=== PATIENT | female | born 1945 | race Caucasian/White ===

== ENCOUNTER 2023-11-21 13:57 | Outpatient (OUT) | payer MEDICARE, SELFPAY ==
--- NOTE | 2023-11-21 14:06 | MM_ITS ---
Patient Name: JOSE ANTONIO HATHAWAY MR#: [id number] : 1945 Exam Date: 11/21/2023 Ordering Doctor: Non-Staff Physician RADIOLOGY REPORT PROCEDURE: MM TOMOSYNTHESIS SCREENING BI COMPARISON: MG MAMM SCREEN JONO W CAD, 08/02/2016. MG MAMM SCREEN JONO W CAD, 02/06/2019. INDICATIONS: Screening Calculator Name NCI Breast Cancer Risk Assessment Tool 5 Year Breast Cancer Risk Not Reported. Lifetime Breast Cancer Risk Not Reported. Personal Breast Cancer No Personal Ovarian Cancer No Treatments None Family Cancers None LOCATION: [facility] BREAST COMPOSITION: There are scattered areas of fibroglandular density. FINDINGS: DIAGNOSTIC CATEGORY 1--NEGATIVE. NO CHANGE FROM COMPARISON ASSESSMENT. Scattered benign-appearing lymph nodes are present. RIGHT BREAST: No significant suspicious finding. LEFT BREAST: No significant suspicious finding. RECOMMENDATIONS: ROUTINE MAMMOGRAM AND CLINICAL EVALUATION IN 12 MONTHS. PLEASE NOTE: A NORMAL MAMMOGRAM DOES NOT EXCLUDE THE POSSIBILITY OF BREAST CANCER. A CLINICALLY SUSPICIOUS PALPABLE LUMP SHOULD BE BIOPSIED. Dictated by: Alonso Etienne MD on 11/22/2023 at 07:35 Approved by: Alonso Etienne MD on 11/22/2023 at 07:39
== END 2023-11-21 13:58 | disposition home or self-care (01) ==
DX: Z12.31 Encounter for screening mammogram for malignant neoplasm of breast (principal)
CPT/HCPCS: 77063; 77067

== ENCOUNTER 2024-12-11 13:09 | Outpatient (OUT) | payer MEDICARE, SELFPAY ==
--- OUTSIDE RECORDS SUMMARY | 2024-12-11 13:15 | XMS_ITS | Encounter Summary ---
Author Organization [employer] tem Address [id number] [address] 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 Role Phone Services, [facility] Primary Care Provider Encounter Details DateTypeDepartmentCare Team (Latest Contact Info)Zsrosromeum25/23/2025Orders Only Lillie Vines [facility] - Medical Oncology [address] [place] [phone] Noah Venegas, RADHA Encounter for screening mammogram for malignant neoplasm of breast (Primary Dx); Other acute pulmonary embolism without acute cor pulmonale (CMS-HCC); Acute pulmonary embolism, unspecified pulmonary embolism type, unspecified whether acute cor pulmonale present (CMS-HCC); Chronic deep vein thrombosis (DVT) of calf muscle vein of left lower extremity (CMS-HCC) Social History Tobacco UseTypesPacks/DayYears UsedDateSmoking Tobacco: NeverSmokeless Tobacco: NeverAlcohol UseStandard Drinks/WeekCommentsNever0 (1 standard drink = 0.6 oz pure alcohol)AUDIT-CAnswerDate RecordedFrequency of Alcohol ConsumptionNever 01/08/2019Average Number of DrinksNot on file01/08/2019Frequency of Binge DrinkingNot on file01/08/2019Housing InstabilityAnswerDate RecordedAre you worried or concerned that in the next two months you may not have stable housing that you own, rent or stay in as a part of a household?No3Childcare AnswerDate CfbaahnbVzhupgehdPxlblrb94/12/2019EmploymentAnswerDate Recorded EcxvhvdxcaOfgpgup05/12/2019Hunger ScreeningAnswerDate RecordedWithin the past 12 months we worried whether our food would run out before we got money to buy more.Never True02/01/2024Within the past 12 months the food we bought just didn't last and we didn't have money to get more.Never True4Purpose - LifeAnswerDate RecordedPurpose and direction in kkvqCsdonzg83/11/2021 CommentsNoSex and Gender InformationValueDate RecordedSex Assigned at Iavzjn6509/12/2024 8:13 AM EDTLegal FkeTbpfyr99/06/2015 11:21 AM EDTGender GufstwoyUlglyw02/25/2025 8:13 AM EDTSexual HowynancnjsSsnppzjs69/25/2025 8:13 AM EDTdocumented as of this encounter Plan of Treatment DateTypeDepartmentCare Team (Latest Contact Info)Rjvwnxgxuia99/01/2026 9:00 AM EDTOffice Visit Lillie Vines [facility] - Medical Oncology [address] [place] [phone] Balaji Barrera MD [address] [place] [address] NameTypePriorityAssociated DiagnosesOrder ScheduleMammography screening bilateral with CADImagingRoutine Encounter for screening mammogram for malignant neoplasm of breast Other acute pulmonary embolism without acute cor pulmonale (CMS-HCC) Acute pulmonary embolism, unspecified pulmonary embolism type, unspecified whether acute cor pulmonale present (CMS-HCC) Chronic deep vein thrombosis (DVT) of calf muscle vein of left lower extremity (CMS-HCC) Expected: 12/11/2024 (Approximate), Expires: 12/11/2025documented as of this encounter Goals GoalPatient Goal TypeAssociated ProblemsRecent ProgressPatient-Stated?Author Home Chayo De L aRosa LSW Note: Evaluation of progress towards goal: Safe dc transition home with family support documented as of this encounter Visit Diagnoses Diagnosis Encounter for screening mammogram for malignant neoplasm of breast- Primary Other acute pulmonary embolism without acute cor pulmonale (CMS-HCC) Acute pulmonary embolism, unspecified pulmonary embolism type, unspecified whether acute cor pulmonale present (CMS-HCC) Chronic deep vein thrombosis (DVT) of calf muscle vein of left lower extremity (CMS-HCC) documented in this encounter Care Teams Team MemberRelationshipSpecialtyStart DateEnd Date Services, [facility] [address] [place], [place] PCP - GeneralFamily Neeldkpr24/26/19documented as of this encounter
--- OUTSIDE RECORDS SUMMARY | 2024-12-11 13:15 | XMS_ITS | Clinical Summary ---
Author Organization [employer] [facility] tem Address [id number] [address] 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 Name Role Phone Services, [facility] Primary Care Provider Allergies No known active allergies Medications MedicationSigDispense QuantityRefillsLast FilledStart DateEnd DateStatus levothyroxine (SYNTHROID, LEVOTHROID) 100 MCG tablet Take 25 mcg by mouth in the morning.Active B complex-vitamin C-folic acid (NEPHROCAPS) 1 mg capsule Take 1 capsule by mouth in the morning.Active omega-3 acid ethyl esters (LOVAZA) 1 gram capsule Take 1 capsule (1 g total) by mouth in the morning.Active gluc/msm/C/boron/manganes/prim (JOINT SUPPORT COMPLEX ORAL) Take by mouth.Active NON FORMULARY Take 1 each by mouth in the morning. Med Name: VitaCal -Mag D .Active apixaban (ELIQUIS) 2.5 mg tablet Indications:Factor 5 Leiden mutation, heterozygous,Chronic deep vein thrombosis (DVT) of calf muscle vein of left lower extremity (CMS-HCC),Pulmonary embolism, unspecified chronicity, unspecified pulmonary embolism type, unspecified whether acute cor pulmonale present (CMS-HCC)Take 1 tablet (2.5 mg total) by mouth in the morning and 1 tablet (2.5 mg total) before bedtime. 60 tablet 5Active NON FORMULARY Take 1 each by mouth in the morning. Med Name: Cholestria .11/20/2024 Discontinued NON FORMULARY Take 1 each by mouth in the morning. Med Name: Elderberry plus zinc and Vit-C . 10/02/2025Discontinued omeprazole (PriLOSEC) 20 mg capsule Take 1 capsule (20 mg total) by mouth every morning before breakfast.07/18/2022 11/20/2024Discontinued cyclobenzaprine (FLEXERIL) 10 mg tablet Indications:Sciatica of left sideTake 1 tablet (10 mg total) by mouth 2 (two) times a day as needed for muscle spasms. 10 tablet Discontinued Active Problems ProblemNoted DateDiagnosed DateChronic deep vein thrombosis (DVT) of calf muscle vein of left lower vvrlvekrk73/15/2023Factor 5 Leiden mutation, heterozygous 02/02/20239024Hhqmblvtllcxbn39/29/2023ulmonary rrkhwj9307/17/2022cute pulmonary embolism without acute cor yxaovfnry75/28/2023 Encounters DateTypeDepartmentCare TozrWldiwsrdkdm42/23/2025Orders Only [facility] - Medical Oncology [address] [place] [phone] Noah Venegas, RADHA Encounter for screening mammogram for malignant neoplasm of breast (Primary Dx); Other acute pulmonary embolism without acute cor pulmonale (CMS-HCC); Acute pulmonary embolism, unspecified pulmonary embolism type, unspecified whether acute cor pulmonale present (CMS-HCC); Chronic deep vein thrombosis (DVT) of calf muscle vein of left lower extremity (CMS-HCC)11/20/2024 8:45 AM EDTOffice Visit [facility] - Medical Oncology [address] [place] [phone] Balaji Barrera MD Acute pulmonary embolism, unspecified pulmonary embolism type, unspecified whether acute cor pulmonale present (CMS-HCC) (Primary Dx); Factor 5 Leiden mutation, heterozygous; Chronic deep vein thrombosis (DVT) of calf muscle vein of left lower extremity (CMS-HCC); Other acute pulmonary embolism without acute cor pulmonale (CMS-HCC)11/20/2024 Orders Only [facility] - Medical Oncology [address] [place] [phone] Estephanie Escoto RN Other acute pulmonary embolism without acute cor pulmonale ([facility]-HCC) (Primary Dx); History of DVT (deep vein thrombosis); Factor 5 Leiden mutation, rpbcjhuofwjv80/01/0293Hjtcmr60/15/2025Orders Only Lillie Vines [facility] - Medical Oncology [address] [place] [phone] Balaji Barrera MD 10/08/2024Orders Only Lillie Vines [facility] - Medical Oncology [address] [place] [phone] Estephanie Escoto RN Other acute pulmonary embolism without acute cor pulmonale ([facility]-HCC) (Primary Dx); History of DVT (deep vein thrombosis); Factor 5 Leiden mutation, heterozygous; Monitoring for anticoagulant use; History of pulmonary embolus (PE); Acute pulmonary embolism, unspecified pulmonary embolism type, unspecified whether acute cor pulmonale present ([facility]-HCC); Chronic deep vein thrombosis (DVT) of calf muscle vein of left lower extremity ([facility]-HCC)10/08/20242353Nxjlmy32/11/2025Travelfrom Last 3 Months Family History Medical HistoryRelationNameCommentsDiabetesBrotherHeart diseaseFatherHeart diseaseMotherBreast cancerSisterDiabetesSisterRelationNameStatusCommentsBrother FatherDeceasedMotherDeceasedSister Social History Tobacco UseTypesPacks/DayYears UsedDateSmoking Tobacco: NeverSmokeless [...] as a part of a household?No3Childcare AnswerDate KxqdcbudMjtkdwbosJggjqyd73/12/2019EmploymentAnswerDate Recorded LvhnawxicnFmfuklo06/12/2019Hunger ScreeningAnswerDate RecordedWithin the past 12 months we worried whether our food would run out before we got money to buy more.Never True02/01/2024Within the past 12 months the food we bought just didn't last and we didn't have money to get more.Never True4Purpose - LifeAnswerDate RecordedPurpose and direction in omkgPiaxbge81/11/2021 CommentsNoSex and Gender InformationValueDate RecordedSex Assigned at Pjzgva4309/12/2024 8:13 AM EDTLegal FupDweoku34/06/2015 11:21 AM EDTGender OskfasbnQphxni02/25/2025 8:13 AM EDTSexual MsjmdxgfslfThbmdouj13/25/2025 8:13 AM EDT Last Filed Vital Signs Vital SignReadingTime TakenCommentsBlood Gmvdxjit986/7311/20/2024 8:43 AM EDT Chsjs699511/20/2024 8:43 AM KICQgovdyqpskh96.8 ??C (98.2 ??F)11/20/2024 8:43 AM EDTRespiratory Rppc7233 8:43 AM EDTOxygen Qbgyzklbkr40%11/20/2024 8:43 AM EDTInhaled Oxygen Concentration--Eudwja44.8 kg (202 lb 6.4 oz)11/20/2024 8:43 AM KOZLuthbo916.6 cm (5' 4.02 )11/20/2024 8:43 AM EDTBody Mass Index34.72 11/20/2024 8:43 AM EDT Plan of Treatment DateTypeDepartmentCare Team (Latest Contact Info)Nrqvytnmyll00/01/2026 9:00 AM EDTOffice Visit Lillie Vines [facility] - Medical Oncology [facility] [place] [phone] Balaji Barrera MD [address] [place] [address] Health MaintenanceDue DateLast DoneCommentsDepression Zwunwmasn13/24/1960 DTaP,Tdap and Td Vaccines (1 - Tdap)1966Zoster (Shingles) Vaccine (1 of 2) 1997Fall Risk Xfwsuyurt45/24/2013Influenza Atyizne1110/20/2024Tobacco Kobiwyjcr26 Goals GoalPatient Goal TypeAssociated ProblemsRecent ProgressPatient-Stated?Author Home Chayo De La Rosa LSW Note: Evaluation of progress towards goal: Safe dc transition home with family support Medical Devices ImplantedTypeAreaManufacturerDevice [facility] Expiration DateModel / Serial / LotLens Iol Ultrasert 20.5d - [id number] - [id number] Implanted:Qty: 1 on 01/14/2019 by Megan Del Cid MD at [facility]: [employer]04/[id number] 20.5 / [id number] / NALens Iol Ultrasert 18.0d - [id number] - [id number] Implanted:Qty: 1 on 03/29/2021 by Megan Del Cid MD at [facility]: [employer]/[id number] 18.0 / [id number] / NA Procedures Procedure NamePriorityDate/TimeAssociated DiagnosisCommentsCOMPREHENSIVE METABOLIC ZDDONZtyumrr18/01/2025 9:25 AM EDT Other acute pulmonary embolism without acute cor pulmonale (CMS-HCC) History of DVT (deep vein thrombosis) Factor 5 Leiden mutation, heterozygous Monitoring for anticoagulant use History of pulmonary embolus (PE) Acute pulmonary embolism, unspecified pulmonary embolism type, unspecified whether acute cor pulmonale present (CMS-HCC) Chronic deep vein thrombosis (DVT) of calf muscle vein of left lower extremity (CMS-HCC) CBC WITH AUTO VBXCKOODMGFUZwecytz89/01/2025 9:25 AM EDT Other acute pulmonary embolism without acute cor pulmonale (CMS-HCC) History of DVT (deep vein thrombosis) Factor 5 Leiden mutation, heterozygous Monitoring for anticoagulant use History of pulmonary embolus (PE) Acute pulmonary embolism, unspecified pulmonary embolism type, unspecified whether acute cor pulmonale present (CMS-HCC) Chronic deep vein thrombosis (DVT) of calf muscle vein of left lower extremity ([facility]-HCC) from Last 3 Months Results * CBC auto differential (11/19/2024 9:25 AM EDT)ComponentValueRef RangeTest MethodAnalysis TimePerformed AtPathologist SignatureWBC7.04 - 11 x10E9/L 11/19/2024 2:[address] [facility]ORYRBC Count4.613.8 - 5.2 X10E12/L1 2:[address] [facility] Igwgdpngff78.211.7 - 15.5 g/dL11/19/2024 2:[address] [facility] KONYOUETAKGwzfizycqb47.535 - 47 %11/19/2024 2:[address] [facility] YBNZJZNIXCOKR9679 - 100 fL11/19/2024 2:[address] [facility] BZWWNGPVVZOTJ15.927 - 34 pg11/19/2024 2:[address] [facility] CHDJASZJLFFEBG68.432 - 36 g/dL11/19/2024 2:[address] [facility] YMKEZTYYHHDFP46.211.5 - 15 %11/19/2024 2:[address] LABORATORYPlatelet Qhnlo539410 - 450 X10E9/L1 2:11 PM EDT [facility] ENEONCYKHSWGO62.87 - 12 fL11/19/2024 2:11 PM EDT [facility] LABORATORYNeutrophils %47.9%11/19/2024 2:11 PM EDT [facility] LABORATORYLymphocytes %41.8%11/19/2024 2:11 [facility] LAB[facility]ATORYMonocytes %7.9%11/19/2024 2:[address] [facility]ORYEosinophils %1.9%11/19/2024 2:[address] [facility] LABORATORYBasophils %0.5%11/19/2024 2:[address] [facility] LABORATORYNeutrophils Absolute (A)3.41.5 - 6.6 10*3/uL 11/19/2024 2:[address] [facility]ORYLymphocytes Absolute 2.91.0 - 3.5 10*3/uL11/19/2024 2:[address] [facility] Monocytes Absolute0.60.0 - 0.9 10*3/uL11/19/2024 2:[address] [facility]ORYEosinophils Absolute0.10.0 - 0.4 10*3/uL11/19/2024 2:[address] [facility]OR[facility]ORYBasophils Absolute0.00.0 - 0.2 10*3/uL 11/19/2024 2:[address] [facility] LABORATORYDifferential Type AUTOMATED VAJBNOJBPREM84/01/2025 2:[address] [facility] LABORATORYSpecimen (Source)Anatomical Location / LateralityCollection Method / VolumeCollection TimeReceived TimeBloodVenous blood / UnknownVenipuncture / Ywebvbg1511/19/2024 9:25 AM EDT1 9:25 AM EDT Narrative Authorizing ProviderResult TypeResult StatusChang Travon Barrera [facility] BLOOD ORDERABLES Final ResultPerforming OrganizationAddressCity/State/ZIP CodePhone Number [facility] [address] [place] [address], * (ABNORMAL) Comprehensive metabolic panel (11/19/2024 9:25 AM EDT)Component ValueRef RangeTest MethodAnalysis TimePerformed AtPathologist SignatureSODIUM 062402 - 146 mmol/L1 3:[address] [facility] POTASSIUM3.93.5 - 5.0 mmol/L1 3:[address] [facility] EITKORLBBSNDGDFFTM17237 - 109 mmol/L1 3:[address] [facility] LABORATORYCARBON QVZLDOM0982 - 32 mmol/L1 3:[address] [facility] LABORATORYANION GAP95 - 15 mmol/L1 3:45 PM EDT [facility] LABORATORYBLOOD UREA FFFNHOED725 - 27 mg/dL11/19/2024 3:[address] LABORATORYCREATININE0.740.40 - 1.00 mg/dL 11/19/2024 3:[address] LABORATORYComment:METHOD TRACEABLE TO IDSD IHEBTGKOEFXDFAL105(H)65 - 99 mg/dL11/19/2024 3:45 PM EDT [facility] LABORATORYCALCIUM9.48.5 - 10.5 mg/dL11/19/2024 3:[address] [facility] LABORATORYTOTAL PROTEIN7.36.0 - 8.0 g/dL 11/19/2024 3:[address] [facility] LABORATORYALBUMIN4.33.2 - 5.3 g/dL11/19/2024 3:[address] [facility] LABORATORYALKALINE PNQTZRHAPGF3133 - 130 U/L1 3:[address] [facility] HNGAJMPDQNZNG90<=41 U/L1 3:[address] [facility] PHKPOPJVSNROB45(H)<=31 U/L1 3:[address] [facility] LABORATORYBILIRUBIN,TOTAL1.20.3 - 1.2 mg/dL11/19/2024 3:[address] [facility] LABOR[facility]ORYEGFR Non-Race Ijjowfxcf35>=60 ml/min/1.73sq.m 11/19/2024 3:[address] [facility] LABORATORYComment: Reported eGFR is based on the CKD-EPI 2020 equation that does not use a race coefficient. Specimen (Source)Anatomical Location / LateralityCollection Method / Volume Collection TimeReceived TimeBloodVenous blood / UnknownVenipuncture / Unknown 11/19/2024 9:25 AM EDT1 9:25 AM EDT Narrative Authorizing ProviderResult TypeResult StatusChamagdalene ABURTO BLOOD ORDERABLES Final ResultPerforming OrganizationAddressCity/State/ZIP CodePhone Number [facility] [address] [place] [address], [place] [phone] from Last 3 Months Insurance Advance Directives * Full Code (Latest Code Status on File) Date ActivatedDate InactivatedComments07/16/2022 12:31 PM07/18/2022 3:25 PM Care Teams Team MemberRelationshipSpecialtyStart DateEnd Date Services, [facility] [address], [place] PCP - GeneralFamily Qqurexiz29/26/19
--- NOTE | 2024-12-11 13:22 | MM_ITS ---
Patient Name: JOS EANTONIO HATHAWAY MR#: [id number] : 1945 Exam Date: 12/11/2024 Ordering Doctor: DR. BOUCHRA STUBBS M.D. RADIOLOGY REPORT PROCEDURE: MM TOMOSYNTHESIS SCREENING BI COMPARISON: MM TOMOSYNTHESIS SCREENING BI, 11/21/2023. MG MAMM SCREEN JONO W CAD, 02/06/2019. MG MAMM SCREEN JONO W CAD, 08/02/2016. INDICATIONS: SCREENING Calculator Name NCI Breast Cancer Risk Assessment Tool 5 Year Breast Cancer Risk Not Reported. Lifetime Breast Cancer Risk Not Reported. Personal Breast Cancer No Personal Ovarian Cancer No Treatments None Family Cancers None LOCATION: [facility] BREAST COMPOSITION: There are scattered areas of fibroglandular density. FINDINGS: RIGHT BREAST: No significant suspicious finding. LEFT BREAST: No significant suspicious finding. DIAGNOSTIC CATEGORY 1--NEGATIVE. RECOMMENDATIONS: ROUTINE MAMMOGRAM AND CLINICAL EVALUATION IN 12 MONTHS. Dictated by: Syd Smart DO on 12/11/2024 at 15:10 Approved by: Syd Smart DO on 12/11/2024 at 15:11
--- OUTSIDE RECORDS SUMMARY | 2024-12-11 13:32 | XMS_ITS | CCD ---
Author Organization [facility] Care Team Providers Care Attendant Sales Name Role Phone Services, [facility] Primary Care Provider SERVICES, [facility] Unava ilCOLEMAN Alvarez Attending Unavailable RIVER JAUREGUI Referring Unavailable SERVICES, [facility] Anabella ilRIVER Dominique Referring Unavailable SERVICES, [facility] Unava ilBALAJI Contreras Referring Unavailable SERVICES, [facility] Unava ilBALAJI Contreras Attending Unavailable BALAJI STUBBS Referring Unavailable SERVICES, 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 60 tablet 11 08/18/2024 ActiveB complex- vitamin C-folic acid (NEPHROCAPS) 1 mg capsule (9 sources)take 1 capsule by mouth in the morningB complex-vitamin C-folic acid (NEPHROCAPS) 1 mg capsule Take 1 capsule by mouth in the morning. Activetake 1 capsule by mouth in the morningB complex-vitamin C-folic acid (NEPHROCAPS) 1 mg capsule Take 1 capsule by mouth in the morning. 0 Activecyclobenzaprine hydrochloride 10 mg oral tablet (3 sources)Muscle RelaxantStart: 02-01-2024 End: 11-15-2046cvnv 1 tablet by mouth twice daily as needed for muscle spasms cyclobenzaprine (FLEXERIL) 10 mg tablet Indications: Sciatica of left side Take 1 tablet (10 mg total) by mouth 2 (two) times a day as needed for muscle spasms. 10 tablet 02/01/2024 11/20/2024 Discontinuedgluc/msm/C/boron/manganes/prim (JOINT SUPPORT COMPLEX ORAL) (9 sources)gluc/msm/C/boron/manganes/prim (JOINT SUPPORT COMPLEX ORAL) Take by mouth. Activegluc/msm/C/boron/manganes/prim (JOINT SUPPORT COMPLEX ORAL) Take by mouth. 0 Activelevothyroxine sodium 0.1 mg oral tablet (9 sources)l-Thyroxinelevothyroxine (SYNTHROID, LEVOTHROID) 100 MCG tablet Take 25 mcg by mouth in the morning. ActiveNON FORMULARY (20 sources) End: 44-81-9145agrv 1 dose by mouth in the morningNON FORMULARY Take 1 each by mouth in the morning. Med Name: Cholestria . 11/20/2024 Discontinued End: 85-70-5906woji 1 dose by mouth in the morningNON FORMULARY Take 1 each by mouth in the morning. Med Name: Elderberry plus zinc and Vit-C . 11/20/2024 Discontinuedtake 1 dose by mouth in the morningNON FORMULARY Take 1 each by mouth in the morning. Med Name: Cholestria . Activetake 1 dose by mouth once daily in the morningNON FORMULARY Take 1 each by mouth in the morning. Med Name: VitaCal -Mag D . Activetake 1 dose by mouth in the morningNON FORMULARY Take 1 each by mouth in the morning. Med Name: Elderberry plus zinc and Vit-C . Active take 1 dose by mouth in the morningNON FORMULARY Take 1 each by mouth in the morning. Med Name: Cholestria . 0 Activetake 1 dose by mouth once daily in the morningNON FORMULARY Take 1 each by mouth in the morning. Med Name: VitaCal -Mag D . 0 Activetake 1 dose by mouth in the morningNON FORMULARY Take 1 each by mouth in the morning. Med Name: Elderberry plus zinc and Vit-C . 0 Activeomega-3 acid ethyl esters (shelter) 1000 mg oral capsule (9 sources)omega-3 acid ethyl esters (LOVAZA) 1 gram capsule Take 1 capsule (1 g total) by mouth in the morning. Activeomeprazole 20 mg delayed release oral capsule (8 sources)Proton Pump InhibitorStart: 07-18-2022 End: 13-72-6698csfb 1 capsule by mouth once daily before breakfastomeprazole (PriLOSEC) 20 mg capsule Take 1 capsule (20 mg total) by mouth every morning before breakfast. 07/18/2022 11/20/2024 Discontinued Problems Active Problems Problem ClassificationProblemDateDocumented DateEpisodic/ChronicCoagulation and hemorrhagic disorders (15 sources)Heterozygous Factor V Leiden mutation; Translations: [Activated protein C resistance]Onset: [id number] aftercare (3 sources)Monitoring status; Translations: [Encounter for therapeutic drug level monitoring]15-71-5959BqgfjegnSszhv non-traumatic joint disorders (1 source)Pain in right hip; Translations: [Pain in right hip]Onset: 09-08-2024 EpisodicPhlebitis; thrombophlebitis and thromboembolism (13 sources)Chronic deep venous thrombosis of calf; Translations: [Chronic embolism and thrombosis of left calfmuscular vein]Onset: ChronicPhlebitis; thrombophlebitis and thromboembolism (4 sources)H/O: Deep vein thrombosis; Translations: [Personal history of other venous thrombosis and embolism]19-61-8986ZwevkmquNqovnfail heart disease (20 sources)Acute pulmonary embolism; Translations: [Other pulmonary embolism without acute cor pulmonale]Onset: 590693-20-9291BrazavgmFklaysr disorders (9 sources)Hypothyroidism; Translations: [Hypothyroidism, unspecified]Onset: hronic Past or Other Problems Problem ClassificationProblemDateDocumented DateEpisodic/ChronicNonspecific chest pain (1 source)Chest pain, unspecified; Translations: [Chest pain, unspecified]Onset: 24-77-9917UevxuzfyQerqv connective tissue disease (1 source)Pain in lower limbOnset: 19-02-0038DhrzzeutMsjmq connective tissue disease (1 source)Leg swelling symptomOnset: 24-37-9371VuibkaiuRaebb lower respiratory disease (1 source)Shortness of breathOnset: 10-89-6864GspypfjcWwfly screening for suspected conditions (not mental disorders or infectious disease) (1 source)Patient encounter status; Translations: [Encounter for screening mammogram for malignant neoplasm of breast]52-66-7553ByvzjbatFhrgqznav (except that caused by tuberculosis or sexually transmitted disease) (1 source)Pneumonia, unspecified organism; Translations: [Pneumonia, unspecified organism]Onset: 14-22-1916VjcisbmcNahlibqenfl; intervertebral disc disorders; other back problems (1 source)Sciatica, left side; Translations: [Sciatica, left side]Onset: 69-06-8111Gfzpyfre Results Test NameValueInterpretationReference RangeFacilityCBC WITH AUTO DIFFERENTIALon 28-54-5885RWWSVWNCO ABSOLUTE COUNT (10*3/UL) BY AUTOMATED COUNT0.0 10*3/uLNormal 0.0-0.2PUniversity Hospitals St. John Medical CenterComment on above:Performed By: #### CBCA #### [facility] ([facility]) [address] [place] [address] VIRBASOPHILS RELATIVE PERCENT BY AUTOMATED COUNT0.5 %Normal [facility] CenterComment on above:Performed By: #### CBCA #### [facility] ([facility]) [address] [place] [address] VIRCELLAVISION DIFFERENTIAL TYPEAUTOMATED DIFFERENTIALNormal [facility] CenterComment on above:Performed By: #### CBCA #### [facility] ([facility]) [address] [place] [address] VIREosinophils (Bld) [#/Vol]0.1 10*3/uLNormal0.0-0.4ProKettering Health Daytonca Ucsf Benioff Children'S Hospital OaklandComment on above:Performed By: #### CBCA #### [facility] ([facility]) [address] [place] [address] VIREOSINOPHILS RELATIVE PERCENT BY AUTOMATED COUNT1.9 %Normal [facility] CenterComment on above:Performed By: #### CBCA #### [facility] ([facility]) [address] [place] [address] VIRErythrocyte distribution width (RBC) [Ratio]13.2 %Normal 11.5-15[facility] Medical CenterComment on above:Performed By: #### CBCA #### [facility] ([facility]) [address] [place] [address] VIRHematocrit (Bld) [Volume fraction]42.5 %Ckoftb14-08HygOcfkixNorth Texas Medical CenterComment on above:Performed By: #### CBCA #### [facility] ([facility]) [address] [place] [address] VIRHemoglobin (Bld) [Mass/Vol]14.2 g/nIRnrega67.7-15.5PUniversity Hospitals St. John Medical CenterComment on above:Performed By: #### CBCA #### [facility] ([facility]) [address] [place] [address] VIRLYMPHOCYTES ABSOLUTE COUNT (10*3/UL) BY AUTOMATED COUNT2.9 10*3/uLNormal1.0-3.5PUniversity Hospitals St. John Medical CenterComment on above:Performed By: #### CBCA #### [facility] ([facility]) [address] [place] [address] VIRLYMPHOCYTES RELATIVE PERCENT BY AUTOMATED COUNT41.8 %Normal [facility] CenterComment on above:Performed By: #### CBCA #### [facility] ([facility]) [address] [place] [address] VIRMCH (RBC) [Entitic mass]30.9 fyIqgtwp31-31HevAxtgemNorth Texas Medical CenterComment on above:Performed By: #### CBCA #### [facility] ([facility]) [address] [place] [address] VIRMCHC (RBC) [Mass/Vol]33.4 g/yWScwrdw92-36VdeKmjkgeNorth Texas Medical CenterComment on above:Performed By: #### CBCA #### [facility] ([facility]) [address] [place] [address] VIRMCV (RBC) [Entitic vol]92 rMBanfjo44-466BikXiuhkb Fremont HospitalComment on above:Performed By: #### CBCA #### [facility] ([facility]) [address] [place] [address] VIRMONOCYTES ABSOLUTE COUNT (10*3/UL) BY AUTOMATED COUNT0.6 10*3/uLNormal0.0-0.9[facility] Medical CenterComment on above:Performed By: #### CBCA #### [facility] ([facility]) [address] [place] [address] VIRMONOCYTES RELATIVE PERCENT BY AUTOMATED COUNT7.9 %Normal [facility] CenterComment on above:Performed By: #### CBCA #### [facility] ([facility]) [address] [place] [address] VIRNEUTROPHILS ABSOLUTE COUNT BY AUTOMATED COUNT3.4 10*3/uL Normal1.5-6.6Ohio[facility] Medical CenterComsurgeons choice medical center on above:Performed By: #### CBCA #### [facility] ([facility]) [address] [place] [address] VIRNEUTROPHILS RELATIVE PERCENT BY AUTOMATED COUNT47.9 %Normal [facility] Medical CenterComment on above:Performed By: #### CBCA #### [facility] ([facility]) [address] [place] [address] VIRPlatelet mean volume (Bld) [Entitic vol]10.8 fLNormal7-12 [facility] CenterComment on above:Performed By: #### CBCA #### [facility] ([facility]) [address] [place] [address] VIRPlatelets (Bld) [#/Vol]194 10*3/qDTexzgn650-265SouUvvsgp Fremont HospitalComment on above:Performed By: #### CBCA #### [facility] ([facility]) [address] [place] [address] VIRRBC COUNT4.61 X10E12/LNormal3.8-5.2PUniversity Hospitals St. John Medical CenterComment on above:Performed By: #### CBCA #### [facility] ([facility]) [address] [place] [address] VIRWBC (Bld) [#/Vol]7.0 10*3/uLNormal4-11ProNorth Texas Medical CenterComment on above:Performed By: #### CBCA #### [facility] ([facility]) [address] [place] [address] VIRCOMPREHENSIVE METABOLIC PANELon 14-86-7770Lgpbpet [Mass/Vol] 4.3 g/dLNormal3.2-5.3PUniversity Hospitals St. John Medical CenterComment on above:Performed By: #### CMP #### [facility] ([facility]) [address] [place] [address] VIRALP [Catalytic activity/Vol]65 U/VQvjudd96-768WtdEdafejOhioHealth Southeastern Medical CenterComment on above:Performed By: #### CMP #### [facility] ([facility]) [address] [place] [address] VIRALT [Catalytic activity/Vol]40 U/LHigh<=31PUniversity Hospitals St. John Medical CenterComment on above:Performed By: #### CMP #### [facility] ([facility]) [address] [place] [address] VIRAnion gap [Moles/Vol]9 mmol/LNormal5-15ProNorth Texas Medical CenterComment on above:Performed By: #### CMP #### [facility] ([facility]) [address] [place] [address] VIRAST [Catalytic activity/Vol]36 U/LNormal<=41ProNorth Texas Medical CenterComment on above:Performed By: #### CMP #### [facility] ([facility]) [address] [place] [address] VIRBilirubin [Mass/Vol]1.2 mg/dLNormal0.3-1.2PUniversity Hospitals St. John Medical CenterComment on above:Performed By: #### CMP #### [facility] ([facility]) [address] [place] [address] VIRCalcium [Mass/Vol]9.4 mg/dLNormal8.5-10.5PUniversity Hospitals St. John Medical CenterComment on above:Performed By: #### CMP #### [facility] ([facility]) [address] [place] [address] VIRChloride [Moles/Vol]103 mmol/IKhsenx12-864UmzRkejubNorth Texas Medical CenterComment on above:Performed By: #### CMP #### [facility] ([facility]) [address] [place] [address] VIRCO2 [Moles/Vol]28 mmol/BOmyfxp70-37EmmOkxgzgUniversity Hospitals St. John Medical CenterComment on above:Performed By: #### CMP #### [facility] ([facility]) [address] [place] [address] VIRCreatinine [Mass/Vol]0.74 mg/dLNormal0.40-1.00ProNorth Texas Medical CenterComment on above:Result Comment: METHOD TRACEABLE TO IDMS STANDARDPerformed By: #### CMP #### [facility] ([facility]) [address] [place] [address] VIRGFR/1.73 sq M.predicted among non-blacks MDRD (S/P/Bld) [Vol rate/Area]83 mL/min/{1.73_m2}Normal>=60ProNorth Texas Medical CenterComment on above:Result Comment: Reported eGFR is based on the CKD-EPI 2020 equation that does not use a race coefficient.Performed By: #### CMP #### [facility] ([facility]) [address] [place] [address] VIRGlucose [Mass/Vol]110 mg/lUZdlw54-59NcdWaiekpNorth Texas Medical CenterComment on above:Performed By: #### CMP #### [facility] ([facility]) [address] [place] [address] VIRPotassium [Moles/Vol]3.9 mmol/LNormal3.5-5.0[facility] Medical CenterComment on above:Performed By: #### CMP #### [facility] ([facility]) [address] [place] [address] VIRProtein [Mass/Vol]7.3 g/dLNormal6.0-8.0[facility] Medical CenterComment on above:Performed By: #### CMP #### [facility] ([facility]) [address] [place] [address] VIRSodium [Moles/Vol]140 mmol/NOjnvpj129-112IlmPhppil Fremont HospitalComment on above:Performed By: #### CMP #### [facility] ([facility]) [address] [place] [address] VIRUrea nitrogen [Mass/Vol]19 mg/dLNormal5-27ProNorth Texas Medical CenterComment on above:Performed By: #### CMP #### [facility] ([facility]) [address] [place] [address] VIRCBC AND AUTO DIFFon 96-44-4539RABIXFOL BASOPHIL0.1 X10E9/L Normal0.0-0.2PUniversity Hospitals St. John Medical CenterComment on above:Performed By: #### 91423-8, 44596-7, 77196-8, CBCA, CMP #### [facility] ([id number]) [address] [place] [address] 04078ZITEUNXX NEUTROPHIL4.3 X10E9/LNormal1.5-6.6ProNorth Texas Medical CenterComment on above:Performed By: #### 77390-6, 67973-3, 85155-0, CBCA, CMP #### [facility] ([id number]) [address] [place] [address] 89852Jzrbmogvj/100 WBC (Bld)0.9 %NormalOhioHealth Southeastern Medical Center Comment on above:Performed By: #### 09389-7, 93596-3, 58163-6, CBCA, CMP #### [facility] ([id number]) [address] [place] [address] 10649Tqqmqdbgxpx (Bld) [#/Vol]0.1 10*3/uLNormal0.0-0.4ProNorth Texas Medical CenterComment on above:Performed By: #### 59982-6, 28686-1, 90795-0, CBCA, CMP #### [facility] ([id number]) [address] [place] [address] 82840Hqovpzltttf/100 WBC (Bld)1.8 %NormalOhioHealth Southeastern Medical Center Comment on above:Performed By: #### 95150-9, 62151-7, 31920-8, CBCA, CMP #### [facility] ([id number]) [address] [place] [address] 38945Astjpjltssa distribution width (RBC) [Ratio]13.2 %Normal 11.5-15.0ProNorth Texas Medical CenterComment on above:Performed By: #### 25959-9, 24430-5, 46532-8, CBCA, CMP #### [facility] ([id number]) [address] [place] [address] 97706Osnyzrxcoc (Bld) [Volume fraction]41.3 %Kmstzg94-93VxsKuzvnvNorth Texas Medical CenterComment on above:Performed By: #### 29821-5, 26453-9, 07542-3, CBCA, CMP #### [facility] ([id number]) [address] [place] [address] 54084Abbnejriff (Bld) [Mass/Vol]14.0 g/nOKpdrlj91.7-15.5PUniversity Hospitals St. John Medical CenterComment on above:Performed By: #### 87639-1, 93321-5, 94369-9, CBCA, CMP #### [facility] ([id number]) [address] [place] [address] 71384Muidteuczwg (Bld) [#/Vol]3.1 10*3/uLNormal1.0-3.5PUniversity Hospitals St. John Medical CenterComment on above:Performed By: #### 85267-7, 45027-6, 81626-5, CBCA, CMP #### [facility] ([id number]) [address] [place] [address] 78141Dkrvoglghxf/100 WBC (Bld)38.0 %NormalOhioHealth Southeastern Medical Center Comment on above:Performed By: #### 54996-9, 96043-5, 77968-7, CBCA, CMP #### [facility] ([id number]) [address] [place] [address] 22184BGR (RBC) [Entitic mass]31.5 zyBuypxf61-74BedFqeefgNorth Texas Medical CenterComment on above:Performed By: #### 37993-0, 58939-8, 49300-4, CBCA, CMP #### [facility] ([id number]) [address] [place] [address] 36255PHKJ (RBC) [Mass/Vol]34.0 g/sFKihsqo17-17LdbUyepjsNorth Texas Medical CenterComment on above:Performed By: #### 34594-4, 00122-3, 80347-6, CBCA, CMP #### [facility] ([id number]) [address] [place] [address] 23236BHD (RBC) [Entitic vol]93 zFPufmah43-734TeeMvephhOhioHealth Southeastern Medical CenterComment on above:Performed By: #### 78470-4, 89073-2, 83942-2, CBCA, CMP #### [facility] ([id number]) [address] [place] [address] 34288Asqnrwdvj (Bld) [#/Vol]0.6 10*3/uLNormal0-0.9Ohio[facility] Southeastern Medical CenterComment on above:Performed By: #### 29918-7, 88756-0, 28932-2, CBCA, CMP #### [facility] ([id number]) [address] [place] [address] 74995Wuikdlvup/100 WBC (Bld)6.8 %NormalOhioHealth Southeastern Medical Center Comment on above:Performed By: #### 01738-4, 70677-9, 60252-5, CBCA, CMP #### [facility] ([id number]) [address] [place] [address] 31776Hdmhetvhbgy/100 WBC (Bld)52.5 %[facility] Comment on above:Performed By: #### 04772-8, 85786-0, 25991-1, CBCA, CMP #### [facility] ([id number]) [address] [place] [address] 94998Zmulqojw mean volume (Bld) [Entitic vol]9.8 fLNormal7-12 [facility] Medical CenterComment on above:Performed By: #### 66161-7, 51895-1, 42218-9, CBCA, CMP #### [facility] ([id number]) [address] [place] [address] 71296Agyfdvkkr (Bld) [#/Vol]237 10*3/dOZpzgsp876-091ApxHqmbvn [facility]ont HospitalComment on above:Performed By: #### 75513-5, 09246-9, 21501-9, CBCA, CMP #### [facility] ([id number]) [address] [place] [address] 83306DCD COUNT4.47 X10E12/LNormal3.80-5.20[facility] Comment on above:Performed By: #### 47537-4, 08895-1, 95241-0, CBCA, CMP #### [facility] ([id number]) [address] [place] [address] 54920XLY (Bld) [#/Vol]8.2 10*3/uLNormal4.0-11.0ProNorth Texas Medical CenterComment on above:Performed By: #### 99859-4, 53814-9, 28413-8, CBCA, CMP #### [facility] ([id number]) [address] [place] [address] 78411QQCUIZCXTXMFG METABOLIC PANELon 21-40-9484Ginwmgc [Mass/Vol]4.1 g/dLNormal3.2-5.3PUniversity Hospitals St. John Medical CenterComment on above:Performed By: #### 63057-7, 54057-8, 00927-9, CBCA, CMP #### [facility] ([id number]) [address] [place] [address] 19658NFR [Catalytic activity/Vol]55 U/ORccrtu33-771QbwYwbuxlNorth Texas Medical CenterComment on above:Performed By: #### 37564-0, 05238-7, 08074-8, CBCA, CMP #### [facility] ([id number]) [address] [place] [address] 45477POK [Catalytic activity/Vol]36 U/LHigh0-31PUniversity Hospitals St. John Medical CenterComment on above:Performed By: #### 63637-7, 52561-7, 36125-5, CBCA, CMP #### [facility] ([id number]) [address] [place] [address] 06787Wcrhl gap [Moles/Vol]8 mmol/LNormal5-15ProNorth Texas Medical CenterComment on above:Performed By: #### 51382-3, 38906-7, 91548-6, CBCA, CMP #### [facility] ([id number]) [address] [place] [address] 99716XEG [Catalytic activity/Vol]32 U/LNormal0-41ProNorth [place] Medical CenterComment on above:Performed By: #### 84000-5, 00977-6, 43330-3, CBCA, CMP #### [facility] ([id number]) [address] [place] [address] 81846Omkfxdwuq [Mass/Vol]0.9 mg/dLNormal0.3-1.2PUniversity Hospitals St. John Medical CenterComment on above:Performed By: #### 14678-7, 30480-4, 32231-9, CBCA, CMP #### [facility] ([id number]) [address] [place] [address] 23897Unlwcbn [Mass/Vol]9.3 mg/dLNormal8.5-10.5PUniversity Hospitals St. John Medical CenterComment on above:Performed By: #### 49956-6, 71681-5, 61578-3, CBCA, CMP #### [facility] ([id number]) [address] [place] [address] 53066Ewppejte [Moles/Vol]107 mmol/NJmdkxm32-551GrhZifhtsNorth Texas Medical CenterComment on above:Performed By: #### 99542-8, 32776-3, 09416-3, CBCA, CMP #### [facility] ([id number]) [address] [place] [address] [id number] [Moles/Vol]25 mmol/DJpcxvg86-59RucDxdmwzUniversity Hospitals St. John Medical Center Comment on above:Performed By: #### 44179-6, 71836-6, 32145-7, JUDAH, CMP #### [facility] ([id number]) [address] [place] [address] 30483Lqbfjnjajs [Mass/Vol]0.82 mg/dLNormal0.40-1.00Ohio[facility] Southeastern Medical CenterComment on above:Result Comment: METHOD TRACEABLE TO IDMS STANDARD Performed By: #### 42875-0, 79934-5, 17120-7, JUDAH, CMP #### [facility] ([id number]) [address] [place] [address] 30332NNV/1.73 sq M.predicted among non-blacks MDRD (S/P/Bld) [Vol rate/Area]74 mL/min/{1.73_m2}Normal>59ProNorth Texas Medical CenterComment on above:Result Comment: Reported eGFR is based on the CKD-EPI 2020 equation that does not use a race coefficient.Performed By: #### 11690-2, 90669-0, 58674-4, CBCTiffanie, CMP #### [facility] ([id number]) [address] [place] [address] 90286Xsiichf [Mass/Vol]119 mg/wVAxga34-72KltGzagqxOhioHealth Southeastern Medical Center Comment on above:Performed By: #### 98488-4, 22849-0, 34231-2, CBCTiffanie, CMP #### [facility] ([id number]) [address] [place] [address] 10042Wdsnxrlwa [Moles/Vol]3.9 mmol/LNormal3.5-5.0Ohio[facility] Southeastern Medical CenterComment on above:Performed By: #### 83645-8, 41033-0, 92525-8, CBCA, CMP #### [facility] ([id number]) [address] [place] [address] 14049Ifbytoq [Mass/Vol]7.0 g/dLNormal6.0-8.0Ohio[facility] Southeastern Medical CenterComment on above:Performed By: #### 03805-5, 92781-0, 13995-1, CBCA, CMP #### [facility] ([id number]) [address] [place] [address] 20139Mdsadr [Moles/Vol]140 mmol/NNfubgz217-278LwaJkwzcy [facility]remont HospitalComment on above:Performed By: #### 40717-1, 59153-9, 11615-9, CBCA, CMP #### [facility] ([id number]) [address] [place] [address] 31993Oxis nitrogen [Mass/Vol]16 mg/dLNormal5-27ProNorth Texas Medical CenterComment on above:Performed By: #### 27413-7, 61903-5, 79004-8, CBCA, CMP #### [facility] ([id number]) [address] [place] [address] 95896UB CTA CHESTon 01-30-2567RH CTA CHESTCT CTA CHEST HISTORY and Tech Notes: Pulmonary embolism (PE) Pain in the legs and swelling and shortness of breath, high prob CT angiogram chest PROCEDURE: CT angiogram chest Images obtained with IV contrast 3 dimensional reconstructions were obtained from an independent workstation under direction of supervising radiologist, in addition to routine 2 dimensional imaging and standard reconstructions. Automated exposure control was utilized COMPARISON: June 2022 FINDINGS: CHEST: No large central pulmonary emboli currently seen The previous emboli are not seen on the current study The detail of the smaller branch vessels is suboptimal because of technical factors. There is some prominent streak artifact from the dense contrast in the right heart and superior vena cava Mild cardiomegaly without significant vascular or coronary calcification No pericardial effusion No sign to suggest aortic dissection or intimal flap There is some pulsation artifact along the ascending aorta No large thyroid mass No large lymph nodes No adrenal mass No splenomegaly Clips consistent with cholecystectomy No fluid collection or ascites in the upper abdomen Some atrophy and fatty infiltration of the pancreas No significant effusions seen. No central bronchial obstruction No lobar collapse or consolidation Mild peribronchial thickening may be seen with airways condition There are scattered granular opacities which are nonspecific but may be seen with mild edema or other interstitial pneumonitis including the possibility of a viral or atypical infection or other inflammatory condition No discrete mass or cavitary process There are degenerative changes in the C-spine There is no lytic destructive process seen IMPRESSION: No large central pulmonary emboli seen The previous emboli are no longer appreciated Pulsation artifact along the ascending aorta but no visible dissection, pleural or pericardial effusion Mild granular opacities bilaterally could be seen with mild edema or other interstitial pneumonitisincluding mild viral or atypical infection in the appropriate setting There is also some peribronchial thickening suggesting airways condition All CT scans at this facility use dose modulation, iterative reconstruction, and/or weight based dosing when appropriate to reduce radiation dose to as low as reasonably achievable. Finalized by Alexey Villarreal MD on 02/01/2024 2:48 PMNormalProNorth Texas Medical CenterFibrin D-dimer DDU (PPP) [Mass/Vol]on 02-01-2024 VDFRI032 ng/mL DDU Normal<255OhioHealth Southeastern Medical CenterComment on above:Result Comment: Results <255 ng/mL DDU: The presence of a VTE can safely be excluded with a negative D-Dimer result and Wells score. A negative result doesn't exclude the possibility of DIC. The test be repeated along with other diagnostic tests if the patient's symptoms persist or worsen. [email or web address] By: #### 35520-2, 67027-9, 52169-8, CBCA, CMP #### [facility] ([id number]) [address] [place] [address] 43377Vymbhgdjerj peptide B [Mass/Vol]on 55-61-4454Tepqwozoppv peptide B (Bld) [Mass/Vol]86 pg/mLNormal<100.0ProNorth Texas Medical CenterComment on above:Performed By: #### 97750-9, 14059-0, 25275-7, JUDAH, CMP #### [facility] ([id number]) [address] [place] [address] 87881Bomqhkha I.cardiac High sensitivity method [Mass/Vol]on 41 HOUR TROP I, HIGH SENSITIVITY3 ng/LNormal<16ProNorth Texas Medical CenterComment on above:Performed By: #### 05819-6 #### [facility] ([id number]) [address] [place] [address] 89238ZDJNBHYU I, HIGH SENSITIVITY4 ng/LNormal<16ProNorth Texas Medical CenterComment on above:Performed By: #### 15717-0, 74044-0, 03957-8, JUDAH, CMP #### [facility] ([id number]) [address] [place] [address] 42078TWI Breast - bilateral screeningOrdered By: Marianna Kearns on 94-72-3151Ggiarfgxv Study observation (narrative)[facility] HospitalDBT Breast - bilateral screeningOrdered By: Marianna Kearns on 93-14-4546TajLeubukSt. Mary's Medical Center Vital Signs Date TimeVital SignValuePerforming VtvqldpbeDijjndcr23-95-3675 08:43-0400Body tsoxac076.6 Elkin Stubbs MD Work Phone: [facility]10-02-2025 08:43-0400Body mass index (BMI) [Ratio]34.72 kg/h1KjwktBalaji Stubbs MD Work Phone: [facility] [employer] Akajfz54-16-2762 08:43-0400Body haotkmvpybo09.2 [degF]Balaji Stubbs MD Work Phone: [facility] [employer] Nfljuf89-84-8916 08:43-0400Body .81 kgBalaji Stubbs MD Work Phone: [facility] [employer] Bdcbtu90-19-7008 08:43-0400Diastolic blood mm[Hg]Balaji Stubbs MD Work Phone: [place] [address] [employer] Jlscyv14-19-7224 08:43-0400Heart rate 63 /minBalaji Stubbs MD Work Phone: [place] [address] [employer] Ibulhy44-32-0056 08:43-0400 Respiratory rate16 /minBalaji Stubbs MD Work Phone: [place] [address] [employer] Ssduxi34-30-1665 08:43-9447OuZ3% (BldA) [Mass fraction]98 %Balaji Stubbs MD Work Phone: [place] [address] [employer] Kpajfy58-79-2692 08:43-0400Systolic blood cwjctnoy807 mm[Hg]Balaji Stubbs MD Work Phone: [phone] [place] [address] [employer] Vzpszg18-30-8693 10:27-0400Body .6 Elkin Stubbs MD Work Phone: [phone] [place] [address] [employer] Fokxma45-14-9171 10:27-0400Body mass index (BMI) [Ratio]34.48 kg/l7OsyjaBalaji Stubbs MD Work Phone: [place] [address] [employer] Hcstfd43-41-2911 10:27-0400Body dcoqcotrnac56.4 [degF]Balaji Stubbs MD Work Phone: [place] [address] [employer] Pvajlm16-64-8963 10:27-0400Body sdohzj97.17 kgBalaji Stubbs MD Work Phone: [facility] [employer] Dgreho63-80-0323 10:27-0400Diastolic blood xdvtfdvo28 mm[Hg]Balaji Stubbs MD Work Phone: [facility] [employer] Podkii31-67-2405 10:27-0400Heart rate 68 /minBalaji Stubbs MD Work Phone: [facility] Mtlrrk14-19-4081 10:27-0400 Respiratory rate16 /minBalaji Stubbs MD Work Phone: [facility] [employer] Widzxi11-16-8782 10:27-4132LyR0% (BldA) [Mass fraction]96 %Balaji Stubbs MD Work Phone: [facility] Ovybny02-44-2960 10:27-0400Systolic blood noipnwpc248 mm[Hg]Balaji Stubbs MD Work Phone: [facility] Gqmcmr61-69-5752 10:33-0400Body ogbdpb912.6 cmChasity Eyal SODA WORKER-SURGEON/PRESIDENT Work Phone: [facility] [employer] Erurmt49-22-5732 10:33-0400Body mass index (BMI) [Ratio]34.83 kg/r5Zbrfwyx Eyal SODA WORKER-SURGEON/PRESIDENT Work Phone: [facility] Hktgcp92-14-9516 10:33-0400Body xvmdaiojstc06.81 [degF]Godwin Eyal SODA WORKER-SURGEON/PRESIDENT Work Phone: [facility] Krkrtp70-79-5828 10:33-0400Body xaoclv23.08 kgChasity Eyal SODA WORKER-SURGEON/PRESIDENT Work Phone: [facility] Uglfto25-72-1635 10:33-0400Diastolic blood mm[Hg]Godwin Eyal SODA WORKER-SURGEON/PRESIDENT Work Phone: [facility] Iywggm96-91-2142 10:33-0400Heart rate 68 /minChasity Eyal SODA WORKER-SURGEON/PRESIDENT Work Phone: [facility] Tnqvxe64-93-0436 10:33-0400 Respiratory rate16 /minChasity Eyal SODA WORKER-SURGEON/PRESIDENT Work Phone: [facility] Dgqltr86-60-1193 10:33-8396GbI8% (BldA) [Mass fraction]98 %Godwin Eyal SODA WORKER-SURGEON/PRESIDENT Work Phone: [facility] CenterRain[facility] Fsdizo28-51-2167 10:330400Systolic blood mm[Hg]Godwin Eyal MCGUIRE-SURGEON/PRESIDENT Work Phone: [facility] Encounters Encounter DateEncounter TypeCare ProviderFacilityStart: 11-20-2024 End: 25-71-3966Oofrrx outpatient visit 15 minutesBalaji Stubbs MD Work Phone: [facility] OncologyComment on above:Acute pulmonary embolism, unspecified pulmonary embolism type, unspecified whether acute cor pulmonale present (CMS-HCC) (Primary Dx); Factor 5 Leiden mutation, heterozygous; Chronic deep vein thrombosis (DVT) of calf muscle vein of left lower extremity (CMS-HCC); Other acute pulmonary embolism without acute cor pulmonale ([facility]-HCC)Start: 11-20-2024 End: 61-74-4701Evqqoh [facility] Medical OncologyComment on above:Other acute pulmonary embolism without acute cor pulmonale (CMS-HCC) (Primary Dx); History of DVT (deep vein thrombosis); Factor 5 Leiden mutation, heterozygousStart: 26-40-7494algupvxquuRSJSJ N XIA [facility] Administrationtart: 10-08-2024 End: 16-16-5067Bpydmo [facility] OncologyComment on above:Other acute pulmonary embolism without acute cor pulmonale (CMS-HCC) (Primary Dx); History of DVT (deep vein thrombosis); Factor 5 Leiden mutation, heterozygous; Monitoring for anticoagulant use; History of pulmonary embolus (PE); Acute pulmonary embolism, unspecified pulmonary embolism type, unspecified whether acute cor pulmonale present (CMS-HCC); Chronic deep vein thrombosis (DVT) of calf muscle vein of left lower extremity (CMS-HCC)Start: 72-60-8542jdvrorwedaRTJMBCMercy Health [facility]rbana [facility] Start: 82-17-4309emtuvgzzurBIVGDFCity Hospitaltart: 08-18-2024 End: 94-17-9838SfewcxNlqiwlu Christiane RNTerrebonne General Medical Center - Medical OncologyComment on above:Factor 5 Leiden mutation, heterozygous (Primary Dx); Chronic deep vein thrombosis (DVT) of calf muscle vein of left lower extremity (CMS-HCC); Pulmonary embolism, unspecified chronicity, unspecified pulmonary embolism type, unspecified whether acute cor pulmonale present (CMS-HCC)Start: 02-01-2024 End: 25-17-7409Ofzdcbuyl department patient visitCOMVeterans Affairs Black Hills Health Care Systemtart: 11-09-2023 End: 51-56-3924Jtctpk Teresatana Campos [facility] Medical OncologyComment on above:Other acute pulmonary embolism without acute cor pulmonale (CMS-HCC) (Primary Dx); History of DVT (deep vein thrombosis); Factor 5 Leiden mutation, heterozygous (CMS-HCC); Monitoring for anticoagulant use; History of pulmonary embolus (PE); Acute pulmonary embolism, unspecified pulmonary embolism type, unspecified whether acute cor pulmonale present ([facility]-HCC); Encounter for screening mammogram for malignant neoplasm of breastStart: 11-09-2023 End: 85-23-3281Flmymk outpatient visit 25 minutesBalaji Stubbs MD Work Phone: [facility] - Medical OncologyComment on above:Chronic deep vein thrombosis (DVT) of calf muscle vein of left lower extremity (CMS-HCC) (Primary Dx); Other acute pulmonary embolism without acute cor pulmonale ([facility]-HCC)Start: 08-06-2023 End: 07-67-6664Mrygat outpatient visit 25 minutesChaanastasiia STANLEY Work Phone: [facility] Medical OncologyComment on above:Factor 5 Leiden mutation, heterozygous ([facility]-HCC) (Primary Dx); History of DVT (deep vein thrombosis); Monitoring for anticoagulant use; History of pulmonary embolus (PE)Start: 87-15-3857Baiipcyxgenyx Janeth Escoto RNOur Lady of the Lake [facility] Medical OncologyStart: 09-01-2022 End: 22-84-8563Jbeui abstractingBalaji Stubbs MD Work Phone: Doluis enriqueleo [facility] - Medical Oncology Procedures DateProcedureProcedure DetailPerforming ClinicianStart: 76-17-7559Ppfcwr-up visitFollow-upBALAJI STUBBSStart: 02-36-4950Ibxfxltbg mammography bi 2-view breast inc cadNot In System Ref Prov Plan of Treatment DateCare ActivityDetailAuthorStart: 78-20-1634Cwymjem ScreeningTobacco Screening ProMw. d. partlow developmental centera Health SystemStart: 11-19-2025 End: 04-75-6349Geoqqkp encounter tukagcfcl30/01/2026 9:00 AM EDT Office Visit Lillie [facility] - Medical Oncology [address] [place] [address] [phone] Balaji Stubbs MD [address] [place] [address] [facility] Medical OncologyStart: 57-43-8685Ixintay ScreeningTobacco ScreeningTriHealth Bethesda Butler Hospitalca [facility] SystemStart: 11-20-2024 End: 66-17-3823Vbuzkft encounter olyoegvzt78/02/2025 8:45 AM EDT Office Visit Lillie Carrillo [facility] Medical Oncology [address] [place] [address] [phone] Balaji Stubbs MD [address] [place] [address] [address]illie [facility] [facility] Medical OncologyStart: 24-53-3361Zinww BMI ScreeningAdult BMI ScreeningMount St. Mary Hospital SystemStart: 11-07-2024 End: 14-12-4456Drgazmq encounter daqrdrflk55/19/2025 10:00 AM EDT Office Visit Lillierobert Carrillo [facility] - Medical Oncology [address] [place] [address] [phone] Balaji Stubbs MD [address] [place] [address] [facility] - Medical OncologyStart: 35-88-0376Urukpnmsb vaccinationInfluenza VaccineProPromedica Fostoria Community Hospital SystemStart: 60-57-1046Uorfc BMI ScreeningAdult BMI ScreeningMount St. Mary Hospital SystemStart: 05-10-2024 End: 35-49-3165PZI W Auto Differential panel - BloodCBC auto differential Lab Routine Other acute pulmonary embolism without acute cor pulmonale (CMS-HCC) Expected: 05/10/2024 (Approximate), Expires: 02/03/2024[facility] Work Phone: Comment on above:Expected: 05/10/2024 (Approximate), Expires: 02/03/2024Start: 05-10-2024 End: 14-32-0367Dmebpzpyfzxal metabolic 2000 panel - Serum or PlasmaComprehensive metabolic panel Lab Routine Other acute pulmonary embolism without acute cor pulmonale (CMS-HCC) Expected: 05/10/2024 (Approximate), Expires: 02/03/[address] [facility] SystemComment on above:Expected: 05/10/2024 (Approximate), Expires: 02/03/2024Start: 12-49-9360Eraaq BMI ScreeningAdult BMI Screening [facility]tart: 11-09-2023 End: 30-38-2744TAG Breast - bilateral screeningMammography screening bilateral with CAD Imaging Routine Other acute pulmonary embolism without acute cor pulmonale ([facility]-HCC) History of DVT (deep vein thrombosis) Factor 5 Leiden mutation, heterozygous ([facility]) Monitoring for anticoagulant use History of pulmonary embolus (PE) Acute pulmonary embolism, unspecified pulmonary embolism type, unspecified whether acute cor pulmonale present ([facility]) Encounter for screening mammogram for malignant neoplasm of breast Expected: 11/09/2023, Expires: 11/08/2024[facility] Work Phone: Comment on above:Expected: 11/09/2023, Expires: 11/08/2024Start: 11-09-2023 End: 37-71-9778Ooonshc encounter xiakyftck67/20/2024 10:15 AM EDT Office Visit Lillie L [facility] - Medical Oncology [address] [place] [phone] Balaji Stubbs MD [address] [place] [address] Lillie Carrillo [facility] - Medical OncologyStart: 78-04-0445Awjgjoitr vaccinationInfluenza VaccineProPromedica Fostoria Community Hospital SystemStart: 08-03-2023 End: 39-72-4326Qdbsogi encounter dlnfjbodm24/14/2024 1:15 PM EDT Office Visit Lillie Carrillo [facility] - Medical Oncology [address] [place] [address], [place] [phone] Balaji Stubbs MD [address] [place] [address] [facility] Medical OncologyStart: 68-60-1441Vkbsrdf ScreeningTobacco ScreeningMount St. Mary Hospital SystemStart: 04-03-2023 End: 17-18-5621Lfbkdcm encounter kdicbtaod83/13/2024 9:00 AM EST Appointment [facility] [address] [place] [phone] Balaji Stubbs MD [address] [place] [address] [facility] - VascularStart: 26-13-3590Bkytydvfw vaccinationInfluenza VaccineMount St. Mary Hospital SystemStart: 20-75-4746Gmyk Risk ScreeningFall Risk ScreeningMount St. Mary Hospital SystemStart: 05-95-6108Ueuqlibgjxrkpw of varicella zoster vaccineZoster (Shingles) Vaccine (1 of 2)[facility] SystemStart: 25-42-4627OSdG,Tdap and Td Vaccines (1 - Tdap)DTaP,Tdap and Td Vaccines (1 - Tdap)[facility] SystemStart: 07-73-9159Tthov BMI Follow Up PlanAdult BMI Follow Up PlanUNC Health Chathamtart: 87-41-3340Wiwaxcxvej ScreeningDepression ScreeningUNC Health Chathamtart: 02-24-1948Medicare Annual Wellness VisitMedicare Annual Wellness VisitWyandot Memorial Hospital End: 17-00-2519YRX W Auto Differential panel - BloodCBC auto differential Lab Routine Other acute pulmonary embolism without acute cor pulmonale (CMS-HCC) History of DVT (deep vein thrombosis) Factor 5 Leiden mutation, heterozygous Monitoring for anticoagulant use History of pulmonary embolus (PE) Acute pulmonary embolism, unspecified pulmonary embolism type, unspecified whether acute cor pulmonale present (CMS-HCC) Chronic deep vein thrombosis (DVT) of calf muscle vein of left lower extremity (CMS-HCC) 1 Occurrences starting 10/08/2024 until 10/08/2025[employer] Work Phone: Comment on above:1 Occurrences starting 10/08/2024 until 10/08/2025 End: 74-75-5137ZZG W Auto Differential panel - BloodCBC auto differential Lab Routine Other acute pulmonary embolism without acute cor pulmonale (CMS-HCC) History of DVT (deep vein thrombosis) Factor 5 Leiden mutation, heterozygous 1 Occurrences starting 11/20/2024 until 11/20/2025[employer] Work Phone: Comment on above:1 Occurrences starting 11/20/2024 until 11/20/2025 End: 36-39-0762Ogpkxjqnywbyw metabolic 2000 panel - Serum or PlasmaComprehensive metabolic panel Lab Routine Other acute pulmonary embolism without acute cor pulmonale (CMS-HCC) History of DVT (deep vein thrombosis) Factor 5 Leiden mutation, heterozygous Monitoring for anticoagulant use History of pulmonary embolus (PE) Acute pulmonary embolism, unspecified pulmonary embolism type, unspecified whether acute cor pulmonale present (CMS-HCC) Chronic deep vein thrombosis (DVT) of calf muscle vein of left lower extremity (CMS-HCC) 1 Occurrences starting 10/08/2024 until 10/08/2025[facility] HospitalTruecaller SystemComment on above:1 Occurrences starting 10/08/2024 until 10/08/2025 End: 28-27-6170Eskodqzwrdily metabolic 2000 panel - Serum or PlasmaComprehensive metabolic panel Lab Routine Other acute pulmonary embolism without acute cor pulmonale (CMS-HCC) History of DVT (deep vein thrombosis) Factor 5 Leiden mutation, heterozygous 1 Occurrences starting 11/20/2024 until 11/20/2025 [facility] HospitalComment on above:1 Occurrences starting 11/20/2024 until 11/20/2025 Payers DatePayer CategoryPayerPolicy [id number] 2018Medicare ANTHEM MEDICARE ANTH MEDICARE ADVANTAGE [id number] 2017-Present [phone] [address] [place] [address] [id number] 2018Medicare HMO [id number] [id number] [id number] [id number] [id number] [id number] [id number] Social History DateTypeDetailFacilityStart: 58-26-0970Otesrww smoking status NHISNever smoked tobaccoWyandot Memorial Hospital Work Phone: Start: 04-45-4231Rqgnjxs use and exposureSmokeless tobacco non-userKettering Health Dayton CoverMe [facility] Hospitaltart: 07-16-2022 End: 70-85-9067Ykbeage intakeLifetime non-drinker (finding)[facility]: 01-08-2019 End: 29-78-5362Vdcsdqw of Social functionUNC Health Chathamtart: 01-08-2019 End: 69-00-4749Ppylqqn Use Disorder Identification Test - Consumption [AUDIT-C] [facility] HospitalFrequency of Alcohol ConsumptionNeverUNC Health Chathamtart: 63-94-6608Gib Assigned At BirthNot on fileWyandot Memorial Hospital Start: 95-62-7934CfvRovhms (finding)[facility]tart: 95-17-4483Vkq assigned at birthFemalFormerly Albem[facility]le Hospitaltart: 94-07-0524Powhqb identity Identifies as female gender (finding)[facility]: 09-12-2024 Sexual orientationHeterosexual (finding)[facility] Medical Equipment Procedure CodeEquipment CodeEquipment Original TextEquipment IdentifierDatesLens Iol Ultrasert 20.5d - [id number] - [id number]: 76-82-3867Yang Iol Ultrasert 18.0d - [id number] - [id number]: 03-29-2021 Goals DatePatient GoalDesired Activity/StatePersonal health goalComment on above: Evaluation of progress towards goal: Safe dc transition home with family support Clinical Notes 02-16-2023 to 11-20-2024 Note Date & XwsyMwztOqzntdmk79-75-9946 History of Present illness Narrative* Estephanie Escoto RN - 11/20/2024 9:08 AM EDT Patient saw Dr. Stubbs today for follow up. Orders received to F/u in 1 year, CBC, CMP. Patient given calendar, verbalized understanding of future appointments. documented in this encounterWyandot Memorial Hospital10-02-2025 History of Present illness Narrative* Balaji Stubbs MD - 11/20/2024 8:45 AM EDT Images from the original note were not included. [facility] 11/20/24 Maritza Del Cid is a 79 y.o. year old female seen today in the oncology clinic. Chief Complaint Patient presents with Follow-up History of Present Illness: Mrs. Alina Del Cid is a 79 y.o. female with remote history of right lower extremity DVT about 40 years ago while she was taking control pills, she was treated with Coumadin for several months. June 2022, she went to emergency room for sudden onset shortness of breath, CT angiogram showed acute pulmonary emboli in the segmental and subsegmental branches of the bilateral upper and lower lobes, right worse and left. There is contrast reflux into the IVC and hepatic veins which can be seen withright-sided heart failure. No other definite CT signs of right heart failure. Her lower extremity Doppler showed left lower extremity acute DVT. Currently she is taking Eliquis twice a day and tolerated very well. Her shortness of breath has improved over time. Denies any significant pain or swelling over lower extremities. Factor 5 Leiden heterozygous mutation. She has family history of thrombosis, including her sister and her father. Interval history: The patient is very compliant with her Eliquis treatment over the past 12 months, she is currently on 2.5 mg twice a day. Denies any blood in the stool or urine. No significant shortness of breath. No lower extremity edema. She has a occasional numbness around her ankles. Her co-pay is around 40 dollars a month. Mammogram is up-to-date. Past Medical History: Diagnosis Date Cataract Eczema History of DVT (deep vein thrombosis) Hypothyroidism Thyroid agenesis Past Surgical History: Procedure Laterality Date APPENDECTOMY CHOLECYSTECTOMY EXTRACTION CATARACT INTRAOCULAR LENS Left 03/29/2021 Performed by Megan Del Cid MD at [facility] I IMPLANT INTRAOCULAR LENS Right 01/14/2019 Performed by Megan Del Cid MD at [facility] Family History Problem Relation Age of Onset Heart disease Mother Diabetes Sister Breast cancer Sister 80 Diabetes Brother Heart disease Father Social History Socioeconomic History Marital status: Tobacco Use Smoking status: Never Smokeless tobacco: Never Substance and Sexual Activity Alcohol use: Never Drug use: Never Sexual activity: Defer Social Drivers of Health Food Insecurity: No Food Insecurity (02/01/2024) Hunger Screening Food Insecurity - Worry: Never True Food Insecurity - Inability: Never True Housing Instability: Low Risk (07/16/2022) Housing Instability Housing Instability: No No Known Allergies Medication List Accurate as of November 20, 2024 9:29 AM. If you have any questions, ask your nurse or doctor. Medications Continued This Visit apixaban 2.5 mg tablet Quantity: 60 tablet Refills: 11 For diagnoses: Factor 5 Leiden mutation, heterozygous, Chronic deep vein thrombosis (DVT) of calf muscle vein of left lower extremity ([facility]), Pulmonary embolism, unspecified chronicity, unspecified pulmonary embolism type, unspecified whether acute cor pulmonale present ([facility]) Dose: 2.5 mg Signed by: Balaji Stubbs 2.5 mg, oral, 2 times daily Commonly known as: ELIQUIS JOINT SUPPORT COMPLEX ORAL Refills: 0 levothyroxine 100 MCG tablet Refills: 0 Dose: 25 mcg Commonly known as: SYNTHROID, LEVOTHROID NEPHROCAPS 1 mg capsule Refills: 0 Dose: 1 capsule Generic drug: B complex-vitamin C-folic acid NON FORMULARY Refills: 0 Dose: 1 tablet omega-3 acid ethyl esters 1 gram capsule Refills: 0 Dose: 1 g Commonly known as: LOVAZA Medications Discontinued This Visit cyclobenzaprine 10 mg tablet Commonly known as: FLEXERIL Stopped by: Balaji Stubbs NON FORMULARY Stopped by: Balaji Stubbs NON FORMULARY Stopped by: Balaji Stubbs omeprazole 20 mg capsule Commonly known as: PriLOSEC Stopped by: Balaji Stubbs Review of Symptoms: Review of Systems ECO- Symptomatic; fully ambulatory Physical Exam: General: Well appearing, in no acute distress. Vitals: BP 142/73 Pulse 63 Temp 36.8 C (98.2 F) (Oral) Resp 16 Ht 162.6 cm (5' 4.02 ) Wt 91.8 kg (202 lb 6.4 oz) SpO2 98% BMI 34.72 kg/m Body mass index is 34.72 kg/m . Eyes: No icterus, no conjuctival erythema ENT: Pharyngeal mucosa was moist without exudate and inflammation or ulcerations. Tongue was midline and appeared normal.Gums were unremarkable. Lymph nodes: No palpable adenopathy Neck: Supple. There were no masses, tenderness. Trachea was midline. Respiratory: Respirations were non-labored. Lungs were clear to auscultation. There was no dullnessto percussion. Cardiac: Regular rate and rhythm, S1 and S2 sounds were normal. There were no rubs or gallops. Abdomen: Soft, non-tender, Nondistended. Bowel sounds audible in all four quadrants. There were no palpable masses. The liver and spleen were not enlarged. Extremities: There was no clubbing, Cyanosis, edema. Skin: There was no obvious rashes, bruising or ecchymosis. Back exam: No palpable tenderness was appreciated. Neurologic: There was no unilateral weakness. Mood and affect: Normal. Recent Imaging: No results found. Recent Labs: Recent Results (from the past 2 weeks) CBC auto differential Collection Time: 11/19/24 9:25 AM Result Value Ref Range WBC 7.0 4 - 11 x10E9/L RBC Count 4.61 3.8 - 5.2 X10E12/L Hemoglobin 14.2 11.7 - 15.5 g/dL Hematocrit 42.5 35 - 47 % MCV 92 80 - 100 fL MCH 30.9 27 - 34 pg MCHC 33.4 32 - 36 g/dL RDW 13.2 11.5 - 15 % Platelet Count 194 150 - 450 X10E9/L MPV 10.8 7 - 12 fL Neutrophils % 47.9 % Lymphocytes % 41.8 % Monocytes % 7.9 % Eosinophils % 1.9 % Basophils % 0.5 % Neutrophils Absolute (A) 3.4 1.5 - 6.6 10*3/uL Lymphocytes Absolute 2.9 1.0 - 3.5 10*3/uL Monocytes Absolute 0.6 0.0 - 0.9 10*3/uL Eosinophils Absolute 0.1 0.0 - 0.4 10*3/uL Basophils Absolute 0.0 0.0 - 0.2 10*3/uL Differential Type AUTOMATED DIFFERENTIAL Comprehensive metabolic panel Collection Time: 11/19/24 9:25 AM Result Value Ref Range SODIUM 140 134 - 146 mmol/L POTASSIUM 3.9 3.5 - 5.0 mmol/L CHLORIDE 103 98 - 109 mmol/L CARBON DIOXIDE 28 22 - 32 mmol/L ANION GAP 9 5 - 15 mmol/L BLOOD UREA NITROGEN 19 5 - 27 mg/dL CREATININE 0.74 0.40 - 1.00 mg/dL GLUCOSE 110 (H) 65 - 99 mg/dL CALCIUM 9.4 8.5 - 10.5 mg/dL TOTAL PROTEIN 7.3 6.0 - 8.0 g/dL ALBUMIN 4.3 3.2 - 5.3 g/dL ALKALINE PHOSPHATASE 65 39 - 130 U/L AST 36 <=41 U/L ALT 40 (H) <=31 U/L BILIRUBIN,TOTAL 1.2 0.3 - 1.2 mg/dL EGFR Non-Race Dependent 83 >=60 ml/min/1.73sq.m Diagnosis Problem list: Problem List Items Addressed This Visit Cardiovascular and Mediastinum Acute pulmonary embolism without acute cor pulmonale (CMS-HCC) Pulmonary emboli (CMS-HCC) - Primary Chronic deep vein thrombosis (DVT) of calf muscle vein of left lower extremity (CMS-HCC) Hematopoietic and Hemostatic Factor 5 Leiden mutation, heterozygous Impression: Recurrent lower extremity thrombosis and pulmonary embolism 06/2022 Family history of thrombosis Heterozygous factor 5 leiden mutation Lifelong anticoagulation Plan: I reviewed the patient's imaging studies June 2022 during her diagnosis of pulmonary embolism and left lower extremity DVT. It is reasonable for her to stay on anticoagulation for at least 6 months up until early January 2023. Given family history of thrombosis, I will check her hypercoagulable workup after insurance approval. The workup include factor 5 leiden mutation, prothrombin gene mutation, DRVVT, cardiolipin antibodyand beta 2 glycoprotein. Result came back as factor 5 leiden heterozygous mutation. The rest of the test came back negative. Left lower extremity Doppler 04/10/23 showed no evidence of residual thrombosis. Continue eliquis 2.5 mg bid indefinitely CBC CMP are unremarkable creatinine is within normal range. Mammogram order for screening provided. Follow-up in 1 year with CBC CMP prior to visit. Thank you. Balaji Stubbs MD Please note that portions of this note were generated using voice recognition [employer] dictation software. Although every effort was made to ensure the accuracy of this automated medical administrative technician, some errors in medical administrative technician may have occurred. CC: Patient Care Team: [facility] as PCP - General (Family Medicine) PCP:[facility] [place] Referring MD: Balaji Stubbs MD documented in this encounterR[facility] CenterThe [facility]10-02-2025 Instructions* Patient Instructions* Balaji Stubbs MD - 11/20/2024 8:45 AM EDT F/u in 1 year, CBC, CMP. documented in this encounterW[facility]09-[facility] History of Present illness Narrative* Peri Campos RN - 11/09/2023 10:49 AM EDT The patient is here for f/u of anticoag therapy Dr Stubbs recommends the patient continue wit observation F/u in 1 year, CBC, CMP. Print out order for labs and give order for mammogram. Orders and calendar given documented in this encounterWyandot [facility]09-20-2024 History of Present illness Narrative* Balaji Stubbs MD - 11/09/2023 10:15 AM EDT Images from the original note were not included. [facility] 11/09/23 Maritza Del Cid is a 78 y.o. year old female seen today in the oncology clinic. Chief Complaint Patient presents with Follow-up History of Present Illness: Mrs. Alina Del Cid is a 78 y.o. female with remote history of right lower extremity DVT about 40 years ago while she was taking control pills, she was treated with Coumadin for several months. June 2022, she went to emergency room for sudden onset shortness of breath, CT angiogram showed acute pulmonary emboli in the segmental and subsegmental branches of the bilateral upper and lower lobes, right worse and left. There is contrast reflux into the IVC and hepatic veins which can be seen withright-sided heart failure. No other definite CT signs of right heart failure. Her lower extremity Doppler showed left lower extremity acute DVT. Currently she is taking Eliquis twice a day and tolerated very well. Her shortness of breath has improved over time. Denies any significant pain or swelling over lower extremities. Factor 5 Leiden heterozygous mutation. She has family history of thrombosis, including her sister and her father. Interval history: The patient is very compliant with her Eliquis treatment over the past 6 months, she is currently on 2.5 mg twice a day. Denies any blood in the stool or urine. No significant shortness of breath. Her mammogram is overdue. No lower extremity edema. She has a occasional numbness around her ankles. Past Medical History: Diagnosis Date Cataract Eczema History of DVT (deep vein thrombosis) Hypothyroidism Thyroid agenesis Past Surgical History: Procedure Laterality Date APPENDECTOMY CHOLECYSTECTOMY EXTRACTION CATARACT INTRAOCULAR LENS Left 03/29/2021 Performed by Megan Del Cid MD at [facility] I IMPLANT INTRAOCULAR LENS Right 01/14/2019 Performed by Megan Del Cid MD at [facility] Family History Problem Relation Age of Onset Heart disease Mother Diabetes Sister Breast cancer Sister 80 Diabetes Brother Heart disease Father Social History Socioeconomic History Marital status: Tobacco Use Smoking status: Never Smokeless tobacco: Never Substance and Sexual Activity Alcohol use: Never Drug use: Never Sexual activity: Defer Social Determinants of Health Food Insecurity: No Food Insecurity (07/16/2022) Hunger Screening Food Insecurity - Worry: Never True Food Insecurity - Inability: Never True Housing Instability: Low Risk (07/16/2022) Housing Instability Housing Instability: No No Known Allergies Medication List Accurate as of November 09, 2023 11:36 AM. If you have any questions, ask your nurse or doctor. Medications Continued This Visit apixaban 2.5 mg tablet Quantity: 60 tablet Refills: 11 Dose: 2.5 mg Signed by: Balaji Stubbs 2.5 mg, oral, 2 times daily Commonly known as: ELIQUIS JOINT SUPPORT COMPLEX ORAL Refills: 0 levothyroxine 100 MCG tablet Refills: 0 Dose: 25 mcg Commonly known as: SYNTHROID, LEVOTHROID NEPHROCAPS 1 mg capsule Refills: 0 Dose: 1 capsule Generic drug: B complex-vitamin C-folic acid NON FORMULARY Refills: 0 Dose: 1 capsule NON FORMULARY Refills: 0 Dose: 1 tablet NON FORMULARY Refills: 0 Dose: 1 capsule omega-3 acid ethyl esters 1 gram capsule Refills: 0 Dose: 1 g Commonly known as: LOVAZA omeprazole 20 mg capsule Refills: 0 Dose: 20 mg Signed by: LIZETH Castle 20 mg, oral, Every morning before breakfast Commonly known as: PriLOSEC Review of Symptoms: Review of Systems ECO- Symptomatic; fully ambulatory Physical Exam: General: Well appearing, in no acute distress. Vitals: BP 131/66 Pulse 68 Temp 36.9 C (98.4 F) (Oral) Resp 16 Ht 162.6 cm (5' 4.02 ) Wt 91.2 kg (201 lb) SpO2 96% BMI 34.48 kg/m Body mass index is 34.48 kg/m . Eyes: No icterus, no conjuctival erythema ENT: Pharyngeal mucosa was moist without exudate and inflammation or ulcerations. Tongue was midline and appeared normal.Gums were unremarkable. Lymph nodes: No palpable adenopathy Neck: Supple. There were no masses, tenderness. Trachea was midline. Respiratory: Respirations were non-labored. Lungs were clear to auscultation. There was no dullnessto percussion. Cardiac: Regular rate and rhythm, S1 and S2 sounds were normal. There were no rubs or gallops. Abdomen: Soft, non-tender, Nondistended. Bowel sounds audible in all four quadrants. There were no palpable masses. The liver and spleen were not enlarged. Extremities: There was no clubbing, Cyanosis, edema. Skin: There was no obvious rashes, bruising or ecchymosis. Back exam: No palpable tenderness was appreciated. Neurologic: There was no unilateral weakness. Mood and affect: Normal. Recent Imaging: No results found. Recent Labs: No results found for this or any previous visit (from the past 336 hour(s)). 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 It is reasonable for her to stay on anticoagulation for at least 6 months up until early January 2023. Given family history of thrombosis, I will check her hypercoagulable workup after insurance approval. The workup include factor 5 leiden mutation, prothrombin gene mutation, DRVVT, cardiolipin antibodyand beta 2 glycoprotein. Result came back as factor 5 leiden heterozygous mutation. The rest of the test came back negative. Left lower extremity Doppler 04/10/23 showed no evidence of residual thrombosis. Continue eliquis 2.5 mg bid indefinitely F/u in 12 months, CBC, CMP. Encourage patient to share the factor 5 mutation with her children. Mammogram order for screening provided. Thank you. Balaji Stubbs MD Please note that portions of this note were generated using voice recognition [employer] dictation software. Although every effort was made to ensure the accuracy of this automated medical administrative technician, some errors in medical administrative technician may have occurred. CC: Patient Care Team: [facility] - General (Family Medicine) PCP:[facility] [place] Referring MD: Balaji Stubbs MD documented in this encounterWyandot [facility]09-20-2024 Instructions* Patient Instructions* Balaji Sutbbs MD - 11/09/2023 10:15 AM EDT F/u in 1 year, CBC, CMP. Print out order for labs and give order for mammogram. documented in this encounterWy[facility]ot [facility]06-17-2024 History of Present illness Narrative* Godwin Henson APRN-SURGEON/PRESIDENT - 08/06/2023 10:30 AM EDT Images from the original note were not included. [facility] [address] [place] [id number] 08/06/2023 Chief Complaint Patient presents with Follow-up Subjective/Interval events: Maritza Del Cid is a 78 y.o. year old female who is an established patient seen today in the Hematology/Medical Oncology clinic. Presents for follow up visit for Factor V Leiden with PE and DVT history on Eliquis 2.5 mg BID. Sheis accompanied by her . Patient states that 3 months ago, she decreased her Eliquis dose. Her LLE doppler was negative for persistent or recurrent DVT in 03/2023. She denies CP, SOB, leg warm/redness/pain. She denies any overt bruising or bleeding. No hematochezia, melena, hematemesis. She states that she has had a persistent dull headache since around the time she decreased her Eliquis. She has no focal neuro deficits and headache seems to wax and wane. She denies thunderclap headache. She denies stroke symptoms/weakness. She has tried taking 1 Tylenol without significant relief. She also states she has had a lingering cold with chest congestion recently. She takes vitamins and drinks herbal tea. Advised that is was OK to take Mucinex. Advised to follow up with primary care if consistent Tylenol use as directed does not improve headaches. History of Present Illness: Mrs. Alina Del Cid is a 77 y.o. female with remote history of right lower extremity DVT about 40 years ago while she was taking control pills, she was treated with Coumadin for several months. June 2022, she went to emergency room for sudden onset shortness of breath, CT angiogram showed acute pulmonary emboli in the segmental and subsegmental branches of the bilateral upper and lower lobes, right worse and left. There is contrast reflux into the IVC and hepatic veins which can be seen withright-sided heart failure. No other definite CT signs of right heart failure. Her lower extremity Doppler showed left lower extremity acute DVT. Currently she is taking Eliquis twice a day and tolerated very well. Her shortness of breath has improved over time. Denies any significant pain or swelling over lower extremities. Factor 5 Leiden heterozygous mutation. She has family history of thrombosis, including her sister and her father. Review of Symptoms as below unless otherwise stated in HPI ROS negative unless listed in HPI. ECO- Asymptomatic Physical exam: Vitals: BP 119/84 Pulse 68 Temp 36.6 C (97.8 F) (Oral) Resp 16 Ht 162.6 cm (5' 4.02 ) Wt 92.1 kg (203 lb) SpO2 98% BMI 34.83 kg/m Body mass index is 34.83 kg/m . Wt Readings from Last 3 Encounters: 08/06/23 92.1 kg (203 lb) 02/02/23 92.4 kg (203 lb 12.8 oz) 09/15/22 92.5 kg (204 lb) Physical Exam Vitals and nursing note reviewed. Constitutional: Appearance: Normal appearance. She is normal weight. Cardiovascular: Rate and Rhythm: Normal rate and regular rhythm. Pulses: Normal pulses. Heart sounds: Normal heart sounds. Pulmonary: Effort: Pulmonary effort is normal. Breath sounds: Normal breath sounds. Abdominal: General: Bowel sounds are normal. Palpations: Abdomen is soft. Musculoskeletal: General: Normal range of motion. Cervical back: Normal range of motion. Skin: General: Skin is warm and dry. Capillary Refill: Capillary refill takes less than 2 seconds. Neurological: General: No focal deficit present. Mental Status: She is alert and oriented to person, place, and time. Mental status is at baseline. Psychiatric: Mood and Affect: Mood normal. Behavior: Behavior normal. Thought Content: Thought content normal. Judgment: Judgment normal. Recent labs: No results found for this or any previous visit (from the past 168 hour(s)). Problem list: Problem List Items Addressed This Visit Hematopoietic and Hemostatic Factor 5 Leiden mutation, heterozygous ([facility]) - Primary Other Visit Diagnoses History of DVT (deep vein thrombosis) Monitoring for anticoagulant use History of pulmonary embolus (PE) Impression: #. Recurrent lower extremity thrombosis 03/2023 - doppler negative while on AC Current Eliquis dosing 2.5 mg BID #. Pulmonary embolism 06/2022 Asymptomatic at present Current Eliquis dosing 2.5 mg BID #. Family history of thrombosis #. Heterozygous factor 5 leiden mutation #. Headache, mild Recent viral illness No focal neuro deficits Tylenol 1000 mg Q 6 hours, as needed Follow up with PCP Plan: Labs reviewed, stable Continue with Eliquis 2.5 mg daily Follow up with primary care doctor as scheduled Follow up with Dr. Stubbs in 3 months to evaluate need for continued Eliquis Thank you for allowing me to participate in this patient's care. GODWIN HENSON APRN-SURGEON/PRESIDENT 08/06/2023 11:49 AM Total time spent was 30 minutes: Preparing to see the patient (e.g., review of tests) Obtaining and/or reviewing separately obtained history Performing a medically appropriate examination and/or evaluation Counseling and educating the patient/family/caregiver Referring and communicating with other health care giver (not separately reported) Documenting clinical information in the electronic or other health record Independently interpreting results (not separately reported) and communicating results to the patient/family/caregiver Care coordination (not separately reported) Please note that portions of this note may have been generated using voice recognition [employer] dictation software. Although every effort was made to ensure the accuracy of any automated transcriptions, some errors may have occurred. LIZETH Rodriguez 08/06/23 1154 documented in this encounterWy[facility]ot [facility]06-17-2024 Instructions* Patient Instructions* LIZETH Rodriguez - 08/06/2023 10:30 AM EDT Continue with Eliquis 2.5 mg daily Follow up with primary care doctor as scheduled Can try Mucinex 1200 mg twice daily for mucous (1-2 weeks) Can try up to 1000 mg Tylenol every 6 hours for aches/pains Follow up with Dr. Stubbs in 3 months to evaluate need for continued Eliquis documented in this encounterW[facility]ot [facility]12-29-2023 History of Present illness Narrative* Estephanie Escoto RN - 02/16/2023 2:34 PM EST Images from the original note were not included. Patient verbalized understanding. Await clearance form from Dentist office. Dr. Stubbs will need to sign it when she is in the office 03/02/22. MD Estephanie Leon RN She can finish 5 mg dose, and start 2.5 mg bid. Hold eliquis 5 days before 03/08/2023. Previous Messages ----- Message ----- From: Estephanie Escoto RN Sent: 02/16/2023 1:29 PM EST To: Balaji Stubbs MD Subject: dental surgery Patient chipped a tooth on tristan and needs to have a dental surgery. She stopped her eliquis for four days for the surgery but now they can not do the surgery until Mar 08. She is going to go back on them she has a few more pills of 5 mg dose and then she will begin the 2.5 mg dose. She thinks she needs to be off them for 5 days for the surgery but will also need a clearance form sign for the . Please advise. [facility] Diagnosis Factor 5 Leiden mutation, heterozygous (CMS-HCC)- Primary History of DVT (deep vein thrombosis) Monitoring for anticoagulant use Encounter for long-term (current) use of anticoagulants History of pulmonary embolus (PE) [facility] Diagnosis Other acute pulmonary embolism without acute cor pulmonale (CMS-HCC)- Primary History of DVT (deep vein thrombosis) Factor 5 Leiden mutation, heterozygous (CMS-HCC) Monitoring for anticoagulant use Encounter for long-term (current) use of anticoagulants History of pulmonary embolus (PE) Acute pulmonary embolism, unspecified pulmonary embolism type, unspecified whether acute cor pulmonale present (CMS-HCC) Encounter for screening mammogram for malignant neoplasm of breast documented [facility] this [facility] Diagnosis Chronic deep vein thrombosis (DVT) of calf muscle vein of left lower extremity (CMS-HCC)- Primary Other acute pulmonary embolism without acute cor pulmonale (CMS-HCC) documented [facility] this [facility]* Diagnosis Factor 5 Leiden mutation, heterozygous- Primary Chronic deep vein thrombosis (DVT) of calf muscle vein of left lower extremity (CMS-HCC) Pulmonary embolism, unspecified chronicity, unspecified pulmonary embolism type, unspecified whether acute cor pulmonale present (CMS-HCC) documented [facility] Diagnosis Other acute pulmonary embolism without acute cor pulmonale (CMS-HCC)- Primary History of DVT (deep vein thrombosis) Factor 5 Leiden mutation, heterozygous Monitoring for anticoagulant use Encounter for long-term (current) use of anticoagulants History of pulmonary embolus (PE) Acute pulmonary embolism, unspecified pulmonary embolism type, unspecified whether acute cor pulmonale present ([facility]-H[facility]) Chronic deep vein thrombosis (DVT) of calf muscle vein of left lower extremity (CMS-HCC) documented [facility] this [facility] Diagnosis Other acute pulmonary embolism without acute cor pulmonale (CMS-HCC)- Primary History of DVT (deep vein thrombosis) Factor 5 Leiden mutation, heterozygous documented [facility] this [facility]* Diagnosis Acute pulmonary embolism, unspecified pulmonary embolism type, unspecified whether acute cor pulmonale present ([facility])- Primary Factor 5 Leiden mutation, heterozygous Chronic deep vein thrombosis (DVT) of calf muscle vein of left lower extremity (CMS-HCC) Other acute pulmonary embolism without acute cor pulmonale (CMS-HCC) documented [facility] encounter [facility] SystemInstructionsNot on filedocumented in this encounter [facility]ructionsNot on filedocumented in this encounter [facility]ructionsNot on filedocumented in this encounter [facility]ructionsNot on filedocumented in this encounter [facility]Not on filedocumented in this encounter [facility]Not on filedocumented in this encounter [facility] Advance Directives No Advanced Directives Records FoundLatest Code Status on File Code StatusDate ActivatedDate InactivatedCommentsFull Code07/16/2022 12:31 PM 07/18/2022 3:25 PMDate ActivatedDate InactivatedComments07/16/2022 12:31 PM 07/18/2022 3:25 PM Summary Purpose Family History No Family History Records Found Additional Source Comments Care Teams (unrecognized sec tion and content) Team MemberRelationshipSpecialtyStart DateEnd Date Services, [facility] [address] [place] PCP - GeneralFamily Tswrpdcz80/26/19Te MemberRelationshipSpecialtyStart Date End Date Services, [facility] [address] [place] PCP - GeneralFamily Aedtipph49/26/19Te MemberRelationshipSpecialtyStart Date End Date Services, [facility] [address] PCP - GeneralFamily Ezswydye05/26/19Team MemberRelationshipSpecialtyStart Date End Date Services, [facility] [address] PCP - GeneralFamily Onpxjqec07/26/19Team MemberRelationshipSpecialtyStart Date End Date Services, [facility] [address] [place] PCP - [facility]01/14/19[facility] MemberRelationshipSpecialtyStart Date End Date Services, [facility] [address] PCP - [facility]01/14/19[facility] MemberRelationshipSpecialtyStart Date End Date Services, [facility] [address] PCP - [facility]01/14/19 Reason for Visit (unrecogniz ed section and content) ReasonCommentsFollow-upReasonOnset DateCommentsMed Hpordy0608/18/2024 INFORMATION SOURCE (unrecogn ized section and content) DATE CREATED AUTHOR 11/24/2024 [facility] FOR RECORDS PERTAINING TO PATIENTS WHO ARE OR HAVE BEEN ENROLLED IN A CHEMICAL DEPENDENCY/SUBSTANCEABUSE PROGRAM, SOME INFORMATION MAY BE OMITTED. This clinical summary was aggregated from multiple sources. Caution should be exercised in using it in the provision of clinical care. This summary normalizes information from multiple sources, and as a consequence, information in this document may materially change the coding, format and clinical context of patient data. In addition, data may be omitted in some cases. CLINICAL DECISIONS SHOULD BE BASED ON THE PRIMARY CLINICAL RECORDS. [facility] [employer] [facility]. provides no warranty or guarantee of the accuracy or completeness of information in this document.
== END 2024-12-11 13:10 | disposition home or self-care (01) ==
LOC: MAMMO 13:12
PROVIDERS: Visit Provider Internal Medicine Hematology & Oncology
DX: Z12.31 Encounter for screening mammogram for malignant neoplasm of breast (principal)
CPT/HCPCS: 77063; 77067